=== PATIENT | male | born 1985 | race African-American/Black ===

== ENCOUNTER 2017-08-03 12:16 | Emergency (ER) | payer MEDICAID ==
[~2017-08-03] VITALS: Ht 185.4 cm; Wt 91.0 kg
[2017-08-03 14:14] VITALS: BP 153/91
== END 2017-08-03 19:30 | disposition left against medical advice (07) ==
LOC: ER 13:41
DX: M54.5 Low back pain (principal); J45.909 Unspecified asthma, uncomplicated; F17.200 Nicotine dependence, unspecified, uncomplicated
CPT/HCPCS: 99281